=== PATIENT | female | born 1950 | race Two or more races ===

== ENCOUNTER 2024-07-14 08:32 | Emergency (ER) | payer OTHER ==
[~2024-07-14] VITALS: Ht 162.6 cm; Wt 87.5 kg
[2024-07-14] MEDS ORDERED: GLIMEPIRIDE1 M1 (09:12)
[2024-07-14] MEDS ORDERED: LOSARTAN-HCTZ1 EAC1 (09:12)
[2024-07-14] MEDS ORDERED: LEVOTHYROXINE13 MCG (09:13)
[2024-07-14] MEDS ORDERED: TERAZOSIN HCL10 MG (09:13)
[2024-07-14] MEDS ORDERED: LIPITOR40 M1 (09:13)
[2024-07-14] MEDS ORDERED: NORVASC10 MG (09:13)
[2024-07-14] MEDS ORDERED: TOPROL XL50 M1 (09:13)
[2024-07-14] MEDS ORDERED: ENOXAPARIN SODIUM 40 MG/0.4 ML SYRINGE SUBCUTANEO SCH (09:42)
[2024-07-14] MEDS ORDERED: 0.9 % SODIUM CHLORIDE 1,000 ML IV ONE (09:45)
[2024-07-14] MEDS ORDERED: ENOXAPARIN SODIUM 40 MG/0.4 ML SYRINGE SUBCUTANEO ONE ×2 (09:50→16:53)
[2024-07-14 10:11] LABS: HEMATOCRIT 35.6 % (36.0-45.00); HEMOGLOBIN 12.3 g/dL (12.0-15.00); MEAN CELL VOLUME 87.5 fL (80.00-100.00); MEAN CORPUSCULAR HEMOGLOBIN 30.3 pg (27.00-32.0); MEAN CORPUSCULAR HGB CONC 34.6 g/dl (32.0-36.0); PLATELET COUNT 236 K/uL (150-450); RED BLOOD COUNT 4.06 M/uL (4.00-6.00); RED CELL DISTRIBUTION WIDTH 13.7 % (11.5-14.5)
[2024-07-14 10:37] LABS: PH,URINE 6.5 (5.0-8.0); URINE APPEARANCE Clear; URINE BILIRRUBIN Negative (NEGATIVE); URINE BLOOD Negative; URINE COLOR Yellow; URINE GLUCOSE Negative (NEGATIVE); URINE KETONE Negative (NEGATIVE); URINE LEUKOCYTE Negative; URINE NITRATE Negative; URINE PROTEIN Negative (NEGATIVE); URINE UROBILINOGEN 0.2 E.U./dl
[2024-07-14 10:40] LABS: ALBUMIN 3.4 gm/dL (3.4-5.0); BILIRUBIN TOTAL 0.32 mg/dL (0.3-1.2); CALCIUM 9.6 mg/dL (8.5-10.1); CREATININE SERUM 1.08 mg/dL (0.55-1.02); GFR 49.87; GLOBULINA 3.6 G/DL (2.4-3.5); POTASSIUM 4.03 mEq/L (3.5-5.1)
[2024-07-14 10:40] LABS: URINE BACTERIA 432.1 uL (0.0-1933); URINE EPITHELIAL CELLS 61.4 uL (0.0-38.8); URINE RBC 3.5 uL (0.0-20.8); URINE WBC 2.7 uL (0.0-23.2)
[2024-07-14 11:00] LABS: URINE CAST 0.91 uL (0.0-1.40)
[2024-07-14 11:01] LABS: PARTIAL THROMBOPLASTIN TIME 26.2 SECONDS (22.0-34.0); PROTHROMBIN TIME 10.9 SECONDS (9.0-11.5)
[2024-07-14 11:37] LABS: ABG PO2 87.5 mmHg (80-100); ABG pCO2 39.7 mmHg (35-45); BASE EXCESS 0.7 mmol/l; BICARBONATE 25.1 mmol/l (23-25); SaO2 96.9 %; Tco2 26.4 mmol/l
[2024-07-14 12:20] LABS: allen test SATISFACTORY; o2 21 %; puncture site RADIAL RIGHT
[2024-07-14] MEDS ORDERED: AMLODIPINE BESYLATE 5 MG TABLET PO SCH (13:48)
[2024-07-14] MEDS ORDERED: RINGERS SOLUTION,LACTATED 1,000 ML IV SCH (14:00)
[2024-07-14] MEDS ORDERED: AMLODIPINE BESYLATE 5 MG TABLET PO STA (16:19)
[2024-07-14] MEDS ORDERED: hydrALAZINE HCL 20 MG VIAL IV STA (16:19)
[2024-07-14] MEDS ORDERED: hydrALAZINE HCL 20 MG VIAL ONE (16:52)
== END 2024-07-14 17:39 | disposition home or self-care (01) ==
LOC: ER 08:33
PROVIDERS: General Practice
DX: R22.1 Localized swelling, mass and lump, neck (principal); E03.8 Other specified hypothyroidism; I10 Essential (primary) hypertension; Z20.822 Contact with and (suspected) exposure to COVID-19; E11.9 Type 2 diabetes mellitus without complications; Z79.84 Long term (current) use of oral hypoglycemic drugs; I82.C12 Acute embolism and thrombosis of left internal jugular vein
CPT/HCPCS: 36415; 71045; 71260; 82803; 96365; 96366; 99284; J1650; J3490; J7030; Q9965